=== PATIENT | female | born 1955 | race African-American/Black ===

== ENCOUNTER 2017-04-08 12:37 | Emergency (ER) | payer OTHER ==
[2017-04-08 12:43] VITALS: BP 153/70; PULSE 64; TEMP 97.6; BMI 37.5
[2017-04-08] MEDS ORDERED: KETOROLAC TROMETHAMINE 30 MG/1 ML VIAL IVPUSH ONE (13:54)
[2017-04-08] MEDS ORDERED: SODIUM CHLORIDE 1,000 ML IV STA (13:54)
--- NOTE | 2017-04-08 13:56 | PDOC ---
History of Present Illness - General History Source: Patient Exam Limitations: No Limitations - History of Present Illness Initial Comments: 04/08/17 14:07 Patient is a 61 year old female with a significant past medical history of kidney stones, hypertension and hyperlipidemia who presents to the ED with right flank pain since yesterday. Patient states that the pain initially started with diffuse back pain with sudden onset and today it is localized at the right flank and that is constant. Patient describes the pain as sharp while she is ambulating and dull while sitting down. She reports nausea. She denies any vomiting, diarrhea, constipation, hematuria, dysuria or abdominal pain. Patient denies any recent fall or trauma. <Cathleen Sorto - Last Filed: 04/08/17 14:07> - General History Source: Patient, Old Records Exam Limitations: No Limitations <Martha Tabares - Last Filed: 04/08/17 16:30> - General Chief Complaint: Pain Stated Complaint: BACK/ RT SIDE PAIN Time Seen by Provider: 04/08/17 13:36 Past History <Cathleen Sorto - Last Filed: 04/08/17 14:07> - Past Medical History Anemia: No Asthma: No Cancer: No Cardiac Disorders: No CVA: No COPD: No CHF: No Dementia: No Diabetes: No GI Disorders: No Disorders: No HTN: Yes Hypercholesterolemia: Yes Liver Disease: No Seizures: No Thyroid Disease: No - Surgical History Abdominal Surgery: No Appendectomy: No Cardiac Surgery: No Cholecystectomy: Yes Lung Surgery: No Neurologic Surgery: No Orthopedic Surgery: Yes (FX LEFT ANKLE) - Psycho/Social/Smoking Cessation Hx Anxiety: No Suicidal Ideation: No Smoking History: Never smoked Have you smoked in the past 12 months: No Information on smoking cessation initiated: No Hx Alcohol Use: No Drug/Substance Use Hx: No Substance Use Type: None Hx Substance Use Treatment: No <Martha Tabares - Last Filed: 04/08/17 16:30> - Past Medical History Allergies/Adverse Reactions: Allergies Allergy/AdvReac Type Severity Reaction Status Date / Time latex AdvReac Itching Verified 04/08/17 12:40 Home Medications: Ambulatory Orders Amlodipine Besylate [Norvasc -] 10 mg PO DAILY 07/01/14 Valsartan/Hydrochlorothiazide [Diovan Hct 160-25 mg Tablet] 1 each PO DAILY 11/02 Review of Systems - Review of Systems Able to Perform ROS?: Yes Comments:: 04/08/17 14:07 GENERAL/CONSTITUTIONAL: No fever or chills. No weakness. HEAD, EYES, EARS, NOSE AND THROAT: No change in vision. No ear pain or discharge. No sore throat. CARDIOVASCULAR: No chest pain or shortness of breath. RESPIRATORY: No cough, wheezing, or hemoptysis. GASTROINTESTINAL: No nausea, vomiting, diarrhea or constipation. GENITOURINARY: No dysuria, frequency, or change in urination. MUSCULOSKELETAL: (+)right flank pain No joint or muscle swelling or pain. No neck. SKIN: No rash NEUROLOGIC: No headache, vertigo, loss of consciousness, or change in strength/ sensation. ENDOCRINE: No increased thirst. No abnormal weight change. HEMATOLOGIC/LYMPHATIC: No anemia, easy bleeding, or history of blood clots. ALLERGIC/IMMUNOLOGIC: No hives or skin allergy. <Cathleen Sorto - Last Filed: 04/08/17 14:07> *Physical Exam - Vital Signs Last Vital Signs Temp Pulse Resp BP Pulse Ox 97.6 F 64 18 153/70 99 04/08/17 12:40 04/08/17 12:40 04/08/17 12:40 04/08/17 12:40 04/08/17 12:40 - Physical Exam Comments: 04/08/17 14:10 GENERAL: Awake, alert, and fully oriented, in no acute distress HEAD: No signs of trauma EYES: PERRLA, EOMI, sclera anicteric, conjunctiva clear ENT: Auricles normal inspection, hearing grossly normal, nares patent, oropharynx clear without exudates. Moist mucosa NECK: Normal ROM, supple, no lymphadenopathy, JVD, or masses LUNGS: Breath sounds equal, clear to auscultation bilaterally. No wheezes, and no crackles HEART: Regular rate and rhythm, normal S1 and S2, no murmurs, rubs or gallops ABDOMEN: Soft, nontender, normoactive bowel sounds. No guarding, no rebound. No masses EXTREMITIES: Normal range of motion, no edema. No clubbing or cyanosis. No cords, erythema, or tenderness NEUROLOGICAL: Cranial nerves II through XII grossly intact. Normal speech, normal gait SKIN: Warm, Dry, normal turgor, no rashes or lesions noted. <Cathleen Sorto - Last Filed: 04/08/17 14:07> - Vital Signs Last Vital Signs Temp Pulse Resp BP Pulse Ox 97.6 F 64 18 153/70 99 04/08/17 12:40 04/08/17 12:40 04/08/17 12:40 04/08/17 12:40 04/08/17 12:40 <Martha Tabares - Last Filed: 04/08/17 16:30> ED Treatment Course - LABORATORY CBC & Chemistry Diagram: 04/08/17 15:00 04/08/17 15:00 <Martha Tabares - Last Filed: 04/08/17 16:30> Medical Decision Making - Medical Decision Making 04/08/17 13:54 61-year-old female with history of hypertension and nephrolithiasis presents to the emergency Department with complaints of right flank pain since yesterday accompanied with nausea but no vomiting. Differential diagnosis includes but is not limited to: Pyelonephritis, nephrolithiasis/renal colic, musculoskeletal pain, UTI. Plan: 1. Labs and urine analysis 2. Pain management 3. IV fluids for hydration 4. CT scan of abdomen and pelvis without contrast 5. Observe and reevaluate 04/08/17 16:23 Addendum: Labs are reviewed and are noted in the EMR. The urine analysis is negative. CT scan of the abdomen and pelvis shows no acute intra-abdominal pathology or pelvic pathology as well as no stone. I reevaluated the patient at this time and she is feeling improved. We'll discharge home, follow up with primary care physician and return to the emergency department if symptoms persist, worsen, or new symptoms arise. <Martha Tabares - Last Filed: 04/08/17 16:30> *DC/Admit/Observation/Transfer - Attestations Scribe Attestion: 04/08/17 14:11 Documentation prepared by LAURENT Montoya, acting as medical lab director for Martha Tabares MD. <Cathleen Sorot - Last Filed: 04/08/17 14:07> - Discharge Dispostion Admit: No - Attestations Physician Attestion: 04/08/17 13:55 I, Dr. Martha Murano, attest that the scribes documentation that appears above has been prepared under my direction and personally reviewed by me in its entirety. I confirmed that the note above accurately reflects all work, treatment, procedures, and medical decision-making performed by me. <Martha Tabares - Last Filed: 04/08/17 16:30> Diagnosis at time of Disposition: Right flank pain - Discharge Dispostion Disposition: HOME Condition at time of disposition: Stable - Referrals Referrals: STAFF,NOT ON [Primary Care Provider] - - Patient Instructions Printed Discharge Instructions: DI for Low Back Pain Additional Instructions: You may take acetaminophen or ibuprofen for your back pain. Please follow-up with your primary care physician within the next 3-5 days and return to the emergency department if your symptoms persist, worsen, or new symptoms arise.
[2017-04-08] MEDS ORDERED: KETOROLAC TROMETHAMINE 30 MG/1 ML VIAL ONE (14:36)
[2017-04-08 15:07] LABS: URINE APPEARANCE CLEAR; URINE BILIRUBIN NEGATIVE (NEGATIVE); URINE COLOR STRAW; URINE GLUCOSE (UA) NEGATIVE (NEGATIVE); URINE KETONE TRACE (NEGATIVE); URINE LEUK ESTERASE NEGATIVE (NEGATIVE); URINE NITRITE NEGATIVE (NEGATIVE); URINE PROTEIN NEGATIVE (NEGATIVE); URINE UROBILINOGEN NEGATIVE E.U./dl (0.2-1.0)
[2017-04-08 15:11] LABS: URINE BLOOD 1+ (NEGATIVE)
[2017-04-08 15:11] LABS: BASOPHIL 0.7 % (0-2.0); EOSINOPHIL 2.3 % (0-4.5); MCH 25.2 pg (25.7-33.7); MCHC 32.3 g/dl (32.0-36.0); MEAN CELL VOLUME 78.3 fl (80-96); NEUTROPHILS 53.9 % (42.8-82.8); PLATELET COUNT 313 K/MM3 (134-434)
[2017-04-08 15:16] LABS: URINE RBC 2 /hpf (0-3); URINE WBC <1 /hpf (3-5)
[2017-04-08 15:29] LABS: CALCIUM 9.4 mg/dL (8.5-10.1); COCKROFT - GAULT 123.2075; CREATININE 0.8 mg/dL (0.55-1.02); MAGNESIUM 2.2 mg/dL (1.8-2.4); PHOSPHOROUS 2.6 mg/dL (2.5-4.9)
== END 2017-04-08 16:53 | disposition home or self-care (01) ==
LOC: JER 12:37
PROC: 3E0333Z Introduction of Anti-inflammatory into Peripheral Vein, Percutaneous Approach (ICD-10-PCS; principal; 2017-04-08)
DX: R10.31 Right lower quadrant pain (principal); I10 Essential (primary) hypertension; E78.00 Pure hypercholesterolemia, unspecified; Z87.442 Personal history of urinary calculi
CPT/HCPCS: 36415; 74176-TC; 80048; 81003; 81015; 83735; 84100; 85025; 99283-25

== ENCOUNTER 2017-04-10 10:18 | Emergency (ER) | payer OTHER ==
[2017-04-10 10:45] VITALS: TEMP 98.1; BMI 37.5
--- NOTE | 2017-04-10 12:02 | PDOC ---
History of Present Illness - General Chief Complaint: Pain Stated Complaint: RT SIDE PAIN Time Seen by Provider: 04/10/17 12:00 History Source: Patient Exam Limitations: No Limitations - History of Present Illness Initial Comments: CHIEF COMPLAINT: 61 y/o afebrile female with PMH HTN, HLD c/o right upper back pain for the past 2 days. HISTORY OF PRESENT ILLNESS: The patient was seen here 2 days ago for the same pain, had labs/UA/CT scan performed and all were normal. She was discharged home with dx of musculoskeletal pain and instructed to take tylenol at home. The patient states the pain has gotten worse and is now constant and she is also nauseous. She denies f/c, v/d, CP, SOB, abd pain, flank pain, hematuria, dysuria. Vital signs on arrival are notable for pulse of 52. REVIEW OF SYSTEMS: GENERAL/CONSTITUTIONAL: No fever/chills. No weakness. No weight change. HEAD, EYES, EARS, NOSE AND THROAT: No change in vision. No ear pain or discharge. No sore throat. CARDIOVASCULAR: No chest pain or shortness of breath. RESPIRATORY: No cough, wheezing, or hemoptysis. GASTROINTESTINAL: +nausea. No vomiting, diarrhea, abd pain. GENITOURINARY: No dysuria, frequency, or change in urination. MUSCULOSKELETAL: No joint or muscle swelling or pain. No neck or back pain. SKIN: No rash or easy bruising. NEUROLOGIC: No headache, vertigo, loss of consciousness, or loss of sensation. PHYSICAL EXAM: GENERAL: The patient is awake, alert, and fully oriented, in no acute distress. She is ambulatory with a cane. HEAD: Normal with no signs of trauma. ENT: Pupils equal, round and reactive to light, extraocular movements intact, sclera anicteric, conjunctiva clear. Neck supple. LUNGS: Clear to auscultation bilaterally. Normal excursion. No respiratory distress or use of accessory muscles. CHEST WALL: Tenderness to palpation of right floating ribs. CV: RRR, S1/S2, no MRG. Cap refill < 2 sec. ABDOMEN: Soft, non-distended, non-tender even to deep palpation, no hepatomegaly or splenomegaly, no masses. BACK: Exquisite right CVA tenderness with fist percussion. No left CVA ttp. EXTREMITIES: Normal range of motion, no edema. NEUROLOGICAL: Normal speech, normal gait. CN II-XII grossly intact. PSYCH: Normal mood, normal affect. SKIN: Warm, dry, normal turgor, no rashes or lesions noted. Past History - Past Medical History Allergies/Adverse Reactions: Allergies Allergy/AdvReac Type Severity Reaction Status Date / Time latex AdvReac Itching Verified 04/10/17 10:42 Home Medications: Ambulatory Orders Amlodipine Besylate [Norvasc -] 10 mg PO DAILY 07/01/14 Valsartan/Hydrochlorothiazide [Diovan Hct 160-25 mg Tablet] 1 each PO DAILY 11/02 Cephalexin Monohydrate [Keflex -] 500 mg PO BID #10 capsule 04/10/17 Tramadol HCl 50 mg PO Q6H #20 tablet MDD 5 04/10/17 Anemia: No Asthma: No Cancer: No Cardiac Disorders: No CVA: No COPD: No CHF: No Dementia: No Diabetes: No GI Disorders: No Disorders: No HTN: Yes Hypercholesterolemia: Yes Liver Disease: No Seizures: No Thyroid Disease: No - Surgical History Abdominal Surgery: No Appendectomy: No Cardiac Surgery: No Cholecystectomy: Yes Lung Surgery: No Neurologic Surgery: No Orthopedic Surgery: Yes (FX LEFT ANKLE) - Psycho/Social/Smoking Cessation Hx Anxiety: No Suicidal Ideation: No Smoking History: Never smoked Have you smoked in the past 12 months: No Information on smoking cessation initiated: No Hx Alcohol Use: No Drug/Substance Use Hx: No Substance Use Type: None Hx Substance Use Treatment: No *Physical Exam - Vital Signs Last Vital Signs Temp Pulse Resp BP Pulse Ox 98.1 F 52 L 18 129/76 100 04/10/17 10:42 04/10/17 10:42 04/10/17 10:42 04/10/17 10:42 04/10/17 10:42 ED Treatment Course - LABORATORY CBC & Chemistry Diagram: 04/10/17 12:10 04/10/17 12:10 Medical Decision Making - Medical Decision Making A/P: 61 y/o afebrile female with possible pyelo. Plan is as follows: 1. Labs 2. UA/culture 3. Kidney/renal ultrasound 4. IM toradol Kidney/renal ultrasound IMPRESSION: No evidence of hydronephrosis or acute kidney issue. Gave patient all of her results. At this point most likely costochondral pain and UTI. Will send home with rx for Keflex and Tramadol. INstructed the patient to take advil along with the tramadol, drink plenty of fluids and return to the ER in 48-72 hours if no improvement in symptoms. The patient verbalizes understanding of all instructions, has no further questions and is awaiting discharge. *DC/Admit/Observation/Transfer Diagnosis at time of Disposition: Costochondral pain UTI (urinary tract infection) Qualifiers: Urinary tract infection type: acute cystitis Hematuria presence: without hematuria Qualified Code(s): N30.00 - Acute cystitis without hematuria - Discharge Dispostion Disposition: HOME Condition at time of disposition: Stable - Prescriptions Prescriptions: Cephalexin Monohydrate [Keflex -] 500 mg PO BID #10 capsule Tramadol HCl 50 mg PO Q6H #20 tablet MDD 5 - Referrals Referrals: STAFF,NOT ON [Primary Care Provider] - Clement Reynolds MD [Staff Physician] - - Patient Instructions Printed Discharge Instructions: DI for Costochondritis, DI for Urinary Tract Infection (UTI) Additional Instructions: Discharge Instructions: -Please take 2 prescriptions as prescribed; Tramadol may cause drowsiness -Take Tramadol along with Motrin every 6 hours for pain -Drink plenty of fluids -Follow up with your doctor or Dr. Reynolds within 2 weeks -Return to the ER with any worsening or concerning symptom - Post Discharge Activity Work/School Note: Back to Work
[2017-04-10] MEDS ORDERED: KETOROLAC TROMETHAMINE 60 MG/2 ML VIAL IVPUSH ONE (12:08)
[2017-04-10] MEDS ORDERED: KETOROLAC TROMETHAMINE 60 MG/2 ML VIAL ONE (12:26)
[2017-04-10 12:50] LABS: BASOPHIL 0.3 % (0-2.0); EOSINOPHIL 2.5 % (0-4.5); MCH 25.1 pg (25.7-33.7); MCHC 31.9 g/dl (32.0-36.0); MEAN CELL VOLUME 78.7 fl (80-96); MEAN PLT VOLUME 6.8 fl (7.5-11.1); NEUTROPHILS 56.9 % (42.8-82.8); PLATELET COUNT 322 K/MM3 (134-434); RDW 16.5 % (11.6-15.6); WHITE BLOOD COUNT 6.3 K/mm3 (4.0-10.0)
[2017-04-10 12:52] LABS: URINE APPEARANCE CLEAR; URINE BILIRUBIN NEGATIVE (NEGATIVE); URINE COLOR YELLOW; URINE GLUCOSE (UA) NEGATIVE (NEGATIVE); URINE KETONE NEGATIVE (NEGATIVE); URINE NITRITE NEGATIVE (NEGATIVE); URINE PROTEIN NEGATIVE (NEGATIVE); URINE UROBILINOGEN NEGATIVE E.U./dl (0.2-1.0)
[2017-04-10 13:00] LABS: URINE BLOOD 1+ (NEGATIVE); URINE LEUK ESTERASE 1+ (NEGATIVE)
[2017-04-10 13:03] LABS: URINE BACTERIA MODERATE /hpf (NONE SEEN); URINE MUCUS FEW; URINE RBC 3 /hpf (0-3); URINE WBC 13 /hpf (3-5)
[2017-04-10 13:16] LABS: ALBUMIN 4.1 g/dl (3.4-5.0); BILIRUBIN,TOTAL 0.4 mg/dL (0.2-1.0); CALCIUM 9.8 mg/dL (8.5-10.1); COCKROFT - GAULT 98.566; TOT PROT 8.2 g/dl (6.4-8.2)
--- NOTE | 2017-04-10 14:21 | PDOC ---
*Physical Exam - Vital Signs Last Vital Signs Temp Pulse Resp BP Pulse Ox 98.1 F 52 L 18 129/76 100 04/10/17 10:42 04/10/17 10:42 04/10/17 10:42 04/10/17 10:42 04/10/17 10:42 - Physical Exam Comments: 04/10/17 14:19 Vital signs normal. Overall well-appearing, speaking full sentences Exam is normal except for isolated and reproducible tenderness along the right lower floating ribs, most prominent near the cartilage, no overlying rash or bruising or swelling Lungs are clear, no CVA tenderness, abdomen is benign ED Treatment Course - LABORATORY CBC & Chemistry Diagram: 04/10/17 12:10 04/10/17 12:10 - ADDITIONAL ORDERS Additional order review: Laboratory Results 04/10/17 04/10/17 12:10 12:10 Sodium 141 Potassium 3.5 Chloride 102 Carbon Dioxide 32 Anion Gap 7 L BUN 18 D Creatinine 1.0 D Creat Clearance w eGFR 56.37 Random Glucose 95 Calcium 9.8 Total Bilirubin 0.4 D AST 17 ALT 18 Alkaline Phosphatase 94 Total Protein 8.2 D Albumin 4.1 D Urine Color Yellow Urine Appearance Clear Urine pH 5.0 D Urine Protein Negative Urine Glucose (UA) Negative Urine Ketones Negative Urine Blood 1+ H Urine Nitrite Negative Urine Bilirubin Negative Urine Urobilinogen Negative Ur Leukocyte Esterase 1+ H Urine RBC 3 Urine WBC 13 Ur Epithelial Cells Rare Urine Bacteria Moderate Urine Mucus Few 04/10/17 12:10 RBC 4.81 MCV 78.7 L MCHC 31.9 L RDW 16.5 H MPV 6.8 L Neutrophils % 56.9 Lymphocytes % 34.5 Monocytes % 5.8 Eosinophils % 2.5 Basophils % 0.3 - Medications Given in the ED: ED Medications Discontinued Medications Generic Name Dose Route Start Last Admin Trade Name Freq PRN Reason Stop Dose Admin Ketorolac Tromethamine 60 mg 04/10/17 12:08 04/10/17 12:31 Toradol Injection - IVPUSH 04/10/17 12:09 60 mg ONCE ONE Administration Medical Decision Making - Medical Decision Making 04/10/17 14:19 Patient seen and evaluated with the nurse practitioner. I agree with the overall evaluation, assessment, and management with the following summary of visit: 61-year-old female with no severe past medical history presents for second visit in 3 days for persistent right sided pain. Prior workup with labs and urinalysis and CAT scan showed no acute pathology, workup today showed normal labs, normal renal ultrasound, but elevated white blood cells on the urinalysis. Overall her presentation is not consistent with UTI or pyelonephritis, but given the elevated white count on the urinalysis will treat empirically as it pyelonephritis. In the absence of fever and leukocytosis, chemistries treated with outpatient trial. Clinically, the patient has costochondral pain that seems more musculoskeletal, Will trial course of tramadol with strict return precautions. She has no risk factors for PE, no signs or symptoms of PE, clinically rules out. *DC/Admit/Observation/Transfer Diagnosis at time of Disposition: Costochondral pain UTI (urinary tract infection) Qualifiers: Urinary tract infection type: acute cystitis Hematuria presence: without hematuria Qualified Code(s): N30.00 - Acute cystitis without hematuria - Discharge Dispostion Disposition: HOME Condition at time of disposition: Stable - Prescriptions Prescriptions: Cephalexin Monohydrate [Keflex -] 500 mg PO BID #10 capsule Tramadol HCl 50 mg PO Q6H PRN #20 tablet MDD 4 PRN Reason: Pain - Referrals Referrals: STAFF,NOT ON [Primary Care Provider] - Clement Reynolds MD [Staff Physician] - - Patient Instructions Printed Discharge Instructions: DI for Urinary Tract Infection (UTI), DI for Costochondritis Additional Instructions: Discharge Instructions: -Please take 2 prescriptions as prescribed; Tramadol may cause drowsiness -Take Tramadol along with Motrin every 6 hours for pain -Drink plenty of fluids -Follow up with your doctor or Dr. Reynolds within 2 weeks -Return to the ER with any worsening or concerning symptom - Post Discharge Activity Work/School Note: Back to Work
[2017-04-10 15:20] VITALS: BP 126/72; PULSE 58
== END 2017-04-10 15:05 | disposition home or self-care (01) ==
LOC: JER 10:18
DX: M94.0 Chondrocostal junction syndrome [Tietze] (principal); N30.00 Acute cystitis without hematuria; I10 Essential (primary) hypertension; E78.00 Pure hypercholesterolemia, unspecified
CPT/HCPCS: 36415; 76775-TC; 80053; 81003; 81015; 85025; 87086; 99283-25

== ENCOUNTER 2017-12-06 06:44 | Day surgery (SDC) | payer OTHER ==
[2017-12-05 08:40] VITALS: BMI 37.0
--- NOTE | 2017-12-06 07:58 | HP ---
Satellite [facility] - Chief Complaint Chief Complaint: left thumb pain History of Present Illness: left trigger thumb History Source: Patient Limitations to Obtaining History: No Limitations - Past Medical History Allergies/Adverse Reactions: Allergies Allergy/AdvReac Type Severity Reaction Status Date / Time latex AdvReac Itching Verified 04/10/17 10:42 Cardiovascular: Yes: HTN - Current Medications Current Medications: Home Medications Medication Instructions Recorded Amlodipine Besylate [Norvasc -] 10 mg PO DAILY 07/01/14 Valsartan/Hydrochlorothiazide 1 each PO DAILY 07/01/14 [Diovan Hct 160-25 mg Tablet] Satellite Physical Exam - Physical Examination General Appearance: Well Nourished ENT: Clear Lung: Clear to auscultation Heart: Regular rate & rhythm Breasts: Soft Abdomen: Soft Extremities: No edema Satellite Impression/Plan - Impression/Plan Impression: left trigger thumb Operative Procedure: left trigger thumb release Date to be Performed: 12/06/17
[2017-12-06] MEDS ORDERED: PROPOFOL 20 ML ONE (08:33)
[2017-12-06] MEDS ORDERED: MIDAZOLAM HCL 2 MG/2 ML SINGLE DOSE VIAL ONE (08:33)
[2017-12-06 08:49] LABS: PROTHROMBIN TIME (PATIENT) 11.3 SEC (9.98-11.88)
[2017-12-06 08:52] LABS: ACTIVATED PTT 28.3 SECONDS (26.9-34.4)
[2017-12-06] MEDS ORDERED: BUPIVACAINE HCL/PF 0.5% (5MG/ML) 10 ML VIAL ONE (09:09)
[2017-12-06] MEDS ORDERED: LIDOCAINE HCL 1%, 10 MG/ML (20ML VIAL) ONE (09:09)
[2017-12-06] MEDS ORDERED: ONDANSETRON 4 MG/2 ML VIAL IVPUSH PRN (09:31)
[2017-12-06] MEDS ORDERED: oxyCODONE HCL 5 MG TABLET PO PRN (09:31)
[2017-12-06] MEDS ORDERED: LACTATED RINGERS SOLUTION 1,000 ML IV SCH (09:45)
[2017-12-06] MEDS ORDERED: LIDOCAINE HCL 1%, 10 MG/ML (20ML VIAL) INF ONE (09:50)
[2017-12-06] MEDS ORDERED: BUPIVACAINE HCL/PF 0.5% (5MG/ML) 10 ML VIAL IJ ONE (09:50)
--- NOTE | 2017-12-06 10:06 | OP ---
Operative Note - Note: Operative Date: 12/06/17 Pre-Operative Diagnosis: left hand mass, trigger thumb Operation: left hand mass excision, left trigger thumb release, tendon sheath excision Post-Operative Diagnosis: Same as Pre-op Surgeon: Clement Pagan Chief Wharfinger: Jesus Amador Anesthesiologist/BOX STORAGE WORKER: Carisa Santiago Anesthesia: Local, MAC Specimens Removed: 1. tendon sheath 2. hand mass Estimated Blood Loss (mls): 0 Drains, Volume Out (mls): 0 Blood Volume Replaced (mls): 0 Fluid Volume Replaced (mls): 500 Operative Report Dictated: Yes
[2017-12-06 10:52] VITALS: TEMP 97.5
--- NOTE | 2017-12-06 11:04 | OP ---
DATE OF OPERATION: 12/06/2017 PREOPERATIVE DIAGNOSIS: Left trigger thumb and hand mass (different location). POSTOPERATIVE DIAGNOSIS: Left trigger thumb and hand mass (different location). PROCEDURE: 1. Left hand mass excision. 2. Left trigger thumb release. 3. Tendon sheath excision. SURGEON: Clement Pagan MD SEMIAUTOMATIC STITCHER OPERATOR: Humza Soria MD ELECTROTHERAPIST: MANAGER CUSTOMS ANESTHESIA: MAC anesthesia, local injection of 12 mL 0.5% Marcaine, 1% lidocaine mix. DRAINS: None. COMPLICATIONS: None. SPECIMENS: 1. Left hand mass, palm. 2. Left thumb tendon sheath. BLOOD LOSS: None. BLOOD GIVEN: None. FLUID REPLACEMENT: 500 mL INDICATION FOR SURGERY: This patient is a 62-year-old female with a preoperative diagnosis of a left trigger thumb and recurrently painful hand mass in the palm. After understanding the potential, risks, complications, alternatives, benefits of surgery versus nonsurgical treatment, the patient elected to undergo this procedure. DESCRIPTION OF PROCEDURE: Patient was brought to the operating room, peripheral IV placed, IV sedation given. Ancef 1 g IV was given. MAC anesthesia was induced. Left upper extremity was prepped and draped in sterile fashion. Two incisions were marked out with a marking pen, one transversely within an already existing skin crease at the base of the left thumb for the trigger thumb release, a separate incision longitudinally in the palm near the base of the thenar eminence over a painful mass. The arm was then elevated, exsanguinated with an Esmarch bandage, the tourniquet infiltrated to 250 mmHg. The left trigger thumb release was done in the standard fashion. A transverse incision was made with a No. 15 scalpel blade. Subcutaneous hemostasis was achieved with a bipolar cautery. Great care was taken to identify and protect the neurovascular bundles. The patient had a lot of excessive fat and what looked like a small multiloculated ganglion cyst on the volar aspect of the left A1 abdelrahman sheath area, therefore this was excised. The No. 15 scalpel blade was utilized to cut down through the tendon sheath. This opened up the A1 abdelrahman sheath. The central 1 mm was excised and passed off the field as part of the same specimen. The distal and the proximal were checked, the Ragnell retractor used to bring the SPL tendon up through the wound. It looked good. The area was copiously irrigated and washed out. The skin was closed with a 4-0 undyed Vicryl in the deep dermal layer, and final skin reapproximation was done with horizontal mattress 4-0 nylon sutures. Next our attention turned to the palm. A longitudinal incision was made with a No. 15 scalpel blade. Subcutaneous hemostasis was achieved with a bipolar cautery. Subcutaneously there was an obvious mass. It was purple, blood filled, and looked to be either a blood-filled cyst/retinacular cyst, a thrombosed vein, or perhaps a glomus tumor. Either way, it was excised. It was well circumscribed. It was quite small, perhaps 1.5 mm in diameter. It was self-contained. There was no stalk. The area was cauterized, irrigated, washed out, skin closed with 4-0 undyed Vicryl. Final skin reapproximation done with horizontal mattress 4-0 nylon sutures. The area was then washed and dried, covered with Xeroform, 4 x 4 gauze, fluffs between the fingers, Webril, and latex-free Vamshi bandage. The tourniquet was taken down after total tourniquet time of 18 minutes. There were no complications during the case. Patient tolerated the procedure quite well and was brought to ambulatory recovery in stable condition. HUMZA SORIA M.D. [id number]
[2017-12-06 11:51] VITALS: BP 139/88; PULSE 59
--- NOTE | 2017-12-08 14:07 | PATH ---
Surgical Pathology Report Patient Name: MUKUL DIANA [facility]. Rec. #: [id number] /Age/Gender: 1955 (Age: 62) / F Account: [id number] [place] [facility] Taken: 12/06/2017 Received: 12/06/2017 Reported: 12/08/2017 Physicians: Lanette Arias M.D. Specimen(s) Received A: LEFT THUMB TENDON SHEATH B: MASS OF LEFT HAND Clinical History Left hand mass, left trigger finger Final Diagnosis A. THUMB, LEFT, TENDON SHEATH, EXCISION: BENIGN DENSE FIBROCONNECTIVE TISSUE, FIBROADIPOSE TISSUE, AND PROMINENT NERVE BUNDLES. B. HAND, LEFT, MASS, EXCISION: HEMANGIOMA. Electronically Signed Lindy Rollins M.D. Gross Description A. Received in formalin labeled "left thumb tendon sheath," is a 1.2 x 0.5 x 0.2 cm aggregate of patel-yellow soft tissue fragments. The formalin is filtered and the specimen is entirely submitted in one cassette. B. Received in formalin labeled "mass left hand," is a 0.5 x 0.3 x 0.2 cm patel brown, irregular portion of soft tissue. The specimen is submitted in toto in one cassette. /12/06/201712/06/2017
== END 2017-12-06 12:30 | disposition home or self-care (01) ==
LOC: JASU-SURG 06:44
PROVIDERS: ATTEND Orthopaedic Surgery
PROC: 0JBK0ZZ Excision of Left Hand Subcutaneous Tissue and Fascia, Open Approach (ICD-10-PCS; 2017-12-06)
PROC: 0XBK0ZZ Excision of Left Hand, Open Approach (ICD-10-PCS; 2017-12-06)
PROC: 0LN80ZZ Release Left Hand Tendon, Open Approach (ICD-10-PCS; principal; 2017-12-06 09:00)
DX: M65.312 Trigger thumb, left thumb (principal); D18.09 Hemangioma of other sites
CPT/HCPCS: 36415; 85610; 85730; 88304-TC; 88305-TC; 94760

== ENCOUNTER 2020-02-01 14:32 | Emergency (ER) | payer OTHER ==
[2020-02-01 14:49] VITALS: BMI 37.1
--- NOTE | 2020-02-01 15:29 | PDOC ---
History of Present Illness - General Chief Complaint: Chest Pain Stated Complaint: CHEST PAIN Time Seen by Provider: 02/01/20 15:28 History Source: Patient Exam Limitations: No Limitations - History of Present Illness Initial Comments: 02/01/20 15:28 Angelic Tate is a 64F presenting with chest pain. Past History - Past Medical History Allergies/Adverse Reactions: Allergies Allergy/AdvReac Type Severity Reaction Status Date / Time latex AdvReac Itching Verified 02/01/20 14:49 Home Medications: Ambulatory Orders Amlodipine Besylate [Norvasc -] 10 mg PO DAILY 07/01/14 Valsartan/Hydrochlorothiazide [Diovan Hct 160-25 mg Tablet] 1 each PO DAILY 07/01/14 Hydrocodone/Acetaminophen [Vicodin 5-300 mg Tablet] 1 - 2 tab PO TID PRN #20 tablet MDD 6 12/06/17 Anemia: No Asthma: No Cancer: No Cardiac Disorders: No CVA: No COPD: No CHF: No Dementia: No Diabetes: No GI Disorders: No Disorders: No HTN: Yes Hypercholesterolemia: Yes Liver Disease: No Seizures: No Thyroid Disease: No - Surgical History Abdominal Surgery: No Appendectomy: No Cardiac Surgery: No Cholecystectomy: Yes Lung Surgery: No Neurologic Surgery: No Orthopedic Surgery: Yes (FX LEFT ANKLE; KNEE REPLACEMENT) - Immunization History Immunization Up to Date: Yes - Psycho Social/Smoking Cessation Hx Smoking History: Never smoked Have you smoked in the past 12 months: No Information on smoking cessation initiated: No Hx Alcohol Use: No Drug/Substance Use Hx: No Substance Use Type: None Hx Substance Use Treatment: No *Physical Exam - Vital Signs Last Vital Signs Temp Pulse Resp BP Pulse Ox 97.9 F 61 18 138/69 98 02/01/20 14:43 02/01/20 14:43 02/01/20 14:43 02/01/20 14:43 02/01/20 14:43 Discharge - Follow up/Referral Referrals: Judy Martin MD [Primary Care Provider] - - Patient Discharge Instructions - Post Discharge Activity
--- NOTE | 2020-02-01 15:48 | EKG ---
Test Reason : Blood Pressure : / mmHG Vent. Rate : 057 BPM Atrial Rate : 057 BPM P-R Int : 170 ms QRS Dur : 088 ms QT Int : 400 ms P-R-T Axes : 036 -15 012 degrees QTc Int : 389 ms SINUS BRADYCARDIA POSSIBLE LEFT ATRIAL ENLARGEMENT NONSPECIFIC ST AND T WAVE ABNORMALITY ABNORMAL ECG WHEN COMPARED WITH ECG OF 18-FEB-2014 13:39, NO SIGNIFICANT CHANGE WAS FOUND Confirmed by MD Royer, Juan ([id number]) on 02/01/2020 3:48:14 PM Referred By: Confirmed By:Juan Linton MD
--- NOTE | 2020-02-01 15:52 | PDOC ---
History of Present Illness - General Chief Complaint: Chest Pain Stated Complaint: CHEST PAIN Time Seen by Provider: 02/01/20 15:28 - History of Present Illness Initial Comments: Patient's Cell Angelic Tate is a 64 y/o female with reported PMH significant HTN, DM, presenting with chest pain. Reports that the chest pain started a week ago. Reports that pain is worse in the morning and improves as the day continues. Describes the pain as squeezing like in sensation. Denies pain radiation. Denies numbness/tingling. Pt reports having similar pain a couple of years ago and was placed on a Hal[employer] monitor. Does not think she had any abnormalities noted. Denies fever/chills. Denies cough. Denies SOB at rest. Denies abdominal pain/diarrhea/dysuria/LE swelling. Of note, patient had contact on January 22 (conversation at approx. 3 feet away) with a friend who later tested positive for COVID-19. Denies fever/cough. Positive shortness of breath on exertion. Past History - Past Medical History Allergies/Adverse Reactions: Allergies Allergy/AdvReac Type Severity Reaction Status Date / Time latex AdvReac Itching Verified 02/01/20 14:49 Home Medications: Ambulatory Orders Amlodipine Besylate [Norvasc -] 10 mg PO DAILY 07/01/14 Valsartan/Hydrochlorothiazide [Diovan Hct 160-25 mg Tablet] 1 each PO DAILY 07/01/14 Anemia: No Asthma: No Cancer: No Cardiac Disorders: No CVA: No COPD: No CHF: No Dementia: No Diabetes: No GI Disorders: No Disorders: No HTN: Yes Hypercholesterolemia: Yes Liver Disease: No Seizures: No Thyroid Disease: No - Surgical History Abdominal Surgery: No Appendectomy: No Cardiac Surgery: No Cholecystectomy: Yes Lung Surgery: No Neurologic Surgery: No Orthopedic Surgery: Yes (FX LEFT ANKLE; KNEE REPLACEMENT) - Immunization History Immunization Up to Date: Yes - Psycho Social/Smoking Cessation Hx Smoking History: Never smoked Have you smoked in the past 12 months: No Information on smoking cessation initiated: No Hx Alcohol Use: No Drug/Substance Use Hx: No Substance Use Type: None Hx Substance Use Treatment: No Cardiac Specific PMH - Complaint Specific PMHX Pacemaker: No Review of Systems - Review of Systems Comments:: GENERAL/CONSTITUTIONAL: No fever or chills. No weakness._ HEAD, EYES, EARS, NOSE AND THROAT: No change in vision. No change in hearing. No sore throat._ CARDIOVASCULAR: Reports mild chest pain and shortness of breath on exertion. RESPIRATORY: Denies cough, hemoptysis_ GASTROINTESTINAL: No nausea, vomiting, diarrhea or constipation._ GENITOURINARY: No dysuria, frequency, or change in urination._ MUSCULOSKELETAL: No joint or muscle swelling or pain. No neck or back pain._ SKIN: No rash_ NEUROLOGIC: No headache, vertigo, loss of consciousness, or change in strength/sensation._ ENDOCRINE: No increased thirst. No abnormal weight change_ HEMATOLOGIC/LYMPHATIC: No anemia, easy bleeding, or history of blood clots._ ALLERGIC/IMMUNOLOGIC: No hives or skin allergy._ *Physical Exam - Vital Signs Last Vital Signs Temp Pulse Resp BP Pulse Ox 98.3 F 68 18 122/78 100 02/01/20 19:17 02/01/20 19:17 02/01/20 19:17 02/01/20 19:17 02/01/20 19:17 - Physical Exam GENERAL: Awake, alert, and oriented to person/place/time, in no acute distress_ HEAD: No signs of trauma, normocephalic, atraumatic _ EYES: PERRLA, EOMI, sclera anicteric, conjunctiva clear_ ENT: Hearing grossly normal, nares patent, oropharynx clear without exudates. No uvular deviation. Moist mucosa_ NECK: Normal ROM, supple, no lymphadenopathy, JVD, or masses_ LUNGS: No distress, speaks in full sentences, clear to auscultation bilaterally _ HEART: Regular rate and rhythm, normal S1 and S2, no murmurs appreciated, peripheral pulses normal and equal bilaterally._ ABDOMEN: Soft, nontender, normoactive bowel sounds. No guarding, no rebound. No masses_ EXTREMITIES: Normal inspection, Normal range of motion, no edema. No clubbing or cyanosis_ NEUROLOGICAL: Cranial nerves II through XII grossly intact. Normal speech, normal gait, no focal sensorimotor deficits _ SKIN: Warm, Dry, normal turgor, no rashes or lesions noted_ ED Treatment Course - LABORATORY CBC & Chemistry Diagram: 02/01/20 16:00 02/01/20 16:00 - ADDITIONAL ORDERS Additional order review: Laboratory Results 02/01/20 02/01/20 02/01/20 19:08 16:00 16:00 D-Dimer 666 H Sodium 139 Potassium 4.0 Chloride 103 Carbon Dioxide 28 Anion Gap 8 BUN 11.4 Creatinine 0.7 Est GFR (CKD-EPI)AfAm 106.12 Est GFR (CKD-EPI)NonAf 91.56 Random Glucose 87 Calcium 9.4 Total Bilirubin 0.4 AST 18 ALT 19 Alkaline Phosphatase 101 Creatine Kinase 114 Troponin I < 0.02 < 0.02 Total Protein 8.0 Albumin 3.7 02/01/20 16:00 RBC 4.86 MCV 79.5 L MCHC 32.0 RDW 16.6 H MPV 6.8 L Neutrophils % 49.5 Lymphocytes % 38.3 Monocytes % 5.8 Eosinophils % 5.4 H D Basophils % 1.0 D Medical Decision Making - Medical Decision Making 64F presenting mid sternal chest pain for the past 5 days. Dyspnea on exertion at the hospital today. -cbc, cmp -ekg, trop, cxr -d dimer -flu swab -RSV swab -COVID-19 02/01/20 16:34 Call placed to [facility] ([phone]). Will call back only if patient is admitted. 02/01/20 16:35 EKG shows sinus bradycardia, 57 bpm, no ST elevation/depression, QTc 389, no axis deviation. 02/01/20 17:51 Labs reviewed. Laboratory Last Values WBC 7.4 K/mm3 (4.0-10.0) 02/01/20 16:00 RBC 4.86 M/mm3 (3.60-5.2) 02/01/20 16:00 Hgb 12.4 GM/dL (10.7-15.3) 02/01/20 16:00 Hct 38.7 % (32.4-45.2) 02/01/20 16:00 MCV 79.5 fl (80-96) L 02/01/20 16:00 MCH 25.5 pg (25.7-33.7) L 02/01/20 16:00 MCHC 32.0 g/dl (32.0-36.0) 02/01/20 16:00 RDW 16.6 % (11.6-15.6) H 02/01/20 16:00 Plt Count 358 K/MM3 (134-434) 02/01/20 16:00 MPV 6.8 fl (7.5-11.1) L 02/01/20 16:00 Absolute Neuts (auto) 3.7 K/mm3 (1.5-8.0) 02/01/20 16:00 Neutrophils % 49.5 % (42.8-82.8) 02/01/20 16:00 Lymphocytes % 38.3 % (8-40) 02/01/20 16:00 Monocytes % 5.8 % (3.8-10.2) 02/01/20 16:00 Eosinophils % 5.4 % (0-4.5) H D 02/01/20 16:00 Basophils % 1.0 % (0-2.0) D 02/01/20 16:00 Nucleated RBC % 0 % (0-0) 02/01/20 16:00 D-Dimer 666 ng/ml (0-500) H 02/01/20 16:00 Sodium 139 mmol/L (136-145) 02/01/20 16:00 Potassium 4.0 mmol/L (3.5-5.1) 02/01/20 16:00 Chloride 103 mmol/L (98-107) 02/01/20 16:00 Carbon Dioxide 28 mmol/L (21-32) 02/01/20 16:00 Anion Gap 8 MMOL/L (8-16) 02/01/20 16:00 BUN 11.4 mg/dL (7-18) 02/01/20 16:00 Creatinine 0.7 mg/dL (0.55-1.3) 02/01/20 16:00 Est GFR (CKD-EPI)AfAm 106.12 02/01/20 16:00 Est GFR (CKD-EPI)NonAf 91.56 02/01/20 16:00 Random Glucose 87 mg/dL (74-106) 02/01/20 16:00 Calcium 9.4 mg/dL (8.5-10.1) 02/01/20 16:00 Total Bilirubin 0.4 mg/dL (0.2-1) 02/01/20 16:00 AST 18 U/L (15-37) 02/01/20 16:00 ALT 19 U/L (13-61) 02/01/20 16:00 Alkaline Phosphatase 101 U/L (45-117) 02/01/20 16:00 Creatine Kinase 114 U/L (26-192) 02/01/20 16:00 Troponin I < 0.02 ng/ml (0.00-0.05) 02/01/20 16:00 Total Protein 8.0 g/dl (6.4-8.2) 02/01/20 16:00 Albumin 3.7 g/dl (3.4-5.0) 02/01/20 16:00 Influenza A (Rapid) Negative (Negative) 02/01/20 16:00 Influenza B (Rapid) Negative (Negative) 02/01/20 16:00 RSV Rapid Negative (Negative) 02/01/20 16:00 D-Dimer is mildly elevated, as this is an acute phase reactant elevated in viral infections. Pt is resting comfortably and breathing with ease at rest. No shortness of breath at rest. Saturating well on room air. Very low suspicion for PE. Wells Score 0. 02/01/20 19:00 CXR negative for acute chest pathology. Pt signed out to Dr. Hendrix pending . Discharge - Discharge Information Problems reviewed: Yes Clinical Impression/Diagnosis: Chest pain Qualifiers: Chest pain type: unspecified Qualified Code(s): R07.9 - Chest pain, unspecified Condition: Good Disposition: HOME - Admission No - Follow up/Referral Referrals: Judy Martin MD [Primary Care Provider] - Anderson Skinner MD [Staff Physician] - - Patient Discharge Instructions Patient Printed Discharge Instructions: DI for Atypical Chest Pain, DI for Ch est Pain Additional Instructions: Your EKG, labs, chest x-ray were within normal limits. Because you have been in contact with someone with known COVID-19, we encourage you to self quarantine for 14 days since the contact for the safety of yourself and those around you. Please make a follow up appointment with a health outcomes liaison (referral provided here). If you experience any new, worsening, or concerning symptoms, including severe chest pain, nausea, vomiting, shortness of breath, cough, fever, or any other concerns, please return to the emergency room. - Post Discharge Activity
--- NOTE | 2020-02-01 16:23 | PDOC ---
Documentation entered by Elyse Boo SCRIBE, acting as scribe for Isa Melendez MD. Isa Melendez MD: This documentation has been prepared by the scribe, Elyse Boo SCRIBE, under my direction and personally reviewed by me in its entirety. I confirm that the documentation accurately reflects all work, treatment, procedures, and medical decision making performed by me. Attending Attestation - Resident Resident Name: Dawit Pierre - ED Attending Attestation I have performed the following: I have examined & evaluated the patient, The case was reviewed & discussed with the resident, I agree w/resident's findings & plan - HPI HPI: 02/01/20 16:04 Ms. Tate is a 64 year old female with past medical history significant for HTN and DM who presents to the emergency department with chest pain that's been ongoing for the past week, that's worse in the morning, with improvement noted throughout the day. +mild nonproductive cough. SOB today with walking, but otherwise no distress as pt was anxious walking in. not short of breath at rest. Denies fever or chills. The patient reports sick contact with a friend who tested positive for COVID-19. 02/01/20 16:43 - Physicial Exam PE: 02/01/20 16:04 Agree with the resident's HPI and PE as documented in the electronic medical record. GENERAL: Well developed, well nourished. Awake and alert. No acute distress. HEENT: Normocephalic, atraumatic. PERRLA, EOMI. No conjunctival pallor. Sclera are non- icteric. Moist mucous membranes. Oropharynx is clear. NECK: Supple. Full ROM. CARDIOVASCULAR: Regular rate and rhythm. Distal pulses are 2+ and symmetric. PULMONARY: No evidence of respiratory distress. Lungs clear to auscultation bilaterally. No wheezing, rales or rhonchi. ABDOMINAL: Soft. Non-tender. Non-distended. No rebound or guarding. MUSCULOSKELETAL Normal range of motion at all joints. EXTREMITIES: No edema. No calf tenderness. SKIN: Warm and dry. Normal capillary refill. NEUROLOGICAL: Alert, awake, appropriate. Normal speech. PSYCHIATRIC: Cooperative. Good eye contact. Appropriate mood and affect. 02/01/20 16:42 02/02/20 07:23 - Medical Decision Making 03/14/20 16:26 Vital Signs Temp Pulse Resp BP Pulse Ox 97.9 F 61 18 138/69 98 02/01/20 14:43 02/01/20 14:43 02/01/20 14:43 02/01/20 14:43 02/01/20 14:43 DDx chest pain: ACS, coronary vasospasm, NSTEMI, arrhythmia, unstable angina, PE, dissection, PUD, esophageal spasm, GERD, gastritis, costochondritis, pneumonia, pleurisy, pericarditis/myocarditis. dehydration, electrolyte/metabolic derangements. Considered but clinically doubt based on HPI and PE: Low suspicion for ao dissection. EKG normal sinus rhythm, no interval abnormalities, narrow QRS, ST and T wave segments and morphology normal. Nonspecific T wave abnormalities, unchanged from prior Chest pain HEART score 3 which denotes Low risk and probability for ACS, less than 1.7% risk for MACE at 4-6 wks 2 trops, dimer to eval for pe, low risk for PE but with dyspnea and pleuritic cp, can d dimer to eval for PE viral panel sent, pending coronavirus given exposure with close contact <14 days wth mild sx. s/o to dr Power pending workup, cxr 02/02/20 07:26 Heart Score/ECG Review - History History: Slightly suspicious - Electrocardiogram EKG: Non specific repolarization disturbance - Age Age: 45-65 - Risk Factors Risk Factors Heart Score: Yes Hx Hypertension, Yes Hx Diabetes Based on the list above the patient has:: 1-2 risk factors - Troponin Troponin: </= normal limit - Score Heart Score - Total: 3 #1 ECG reviewed & interpreted by me at: 14:40 General ECG Interpretation: Sinus Rhythm, Normal Intervals 02/01/20 16:22 EKG sinus rhythm at 57 bpm, no interval abnormalities, narrow QRS, ST and T wave segments and morphology normal. Nonspecific T wave abnormalities Discharge - Discharge Information Problems reviewed: Yes Clinical Impression/Diagnosis: Chest pain Condition: Good Disposition: HOME - Follow up/Referral Referrals: Judy Martin MD [Primary Care Provider] - Anderson Skinner MD [Staff Physician] - - Patient Discharge Instructions Patient Printed Discharge Instructions: DI for Atypical Chest Pain, DI for Chest Pain Additional Instructions: Your EKG, labs, chest x-ray were within normal limits. Because you have been in contact with someone with known COVID-19, we encourage you to self quarantine for 14 days since the contact for the safety of yourself and those around you. Please make a follow up appointment with a commercial representative (referral provided here). If you experience any new, worsening, or concerning symptoms, including severe chest pain, nausea, vomiting, shortness of breath, cough, fever, or any other concerns, please return to the emergency room. - Post Discharge Activity
[2020-02-01 16:36] LABS: EOS % 5.4 % (0-4.5); HEMATOCRIT 38.7 % (32.4-45.2); HEMOGLOBIN 12.4 GM/dL (10.7-15.3); LYMPH % 38.3 % (8-40); MCH 25.5 pg (25.7-33.7); MEAN CELL VOLUME 79.5 fl (80-96); MEAN PLT VOLUME 6.8 fl (7.5-11.1); MONO % 5.8 % (3.8-10.2); NEUT % 49.5 % (42.8-82.8); PLATELET COUNT 358 K/MM3 (134-434); RBC 4.86 M/mm3 (3.60-5.2); RDW 16.6 % (11.6-15.6); WHITE BLOOD COUNT 7.4 K/mm3 (4.0-10.0)
[2020-02-01 17:05] LABS: ALBUMIN 3.7 g/dl (3.4-5.0); ALK PHOS 101 U/L (45-117); ANION GAP 8 MMOL/L (8-16); BILIRUBIN,TOTAL 0.4 mg/dL (0.2-1); BLOOD UREA NITROGEN 11.4 mg/dL (7-18); CALCIUM 9.4 mg/dL (8.5-10.1); CHLORIDE 103 mmol/L (98-107); CO2 28 mmol/L (21-32); CREATININE 0.7 mg/dL (0.55-1.3); GLUCOSE,RANDOM 87 mg/dL (74-106); SGOT/AST 18 U/L (15-37); SGPT/ALT 19 U/L (13-61); SODIUM 139 mmol/L (136-145)
--- NOTE | 2020-02-01 19:16 | PDOC ---
*Physical Exam - Vital Signs Last Vital Signs Temp Pulse Resp BP Pulse Ox 97.9 F 61 18 138/69 98 02/01/20 14:43 02/01/20 14:43 02/01/20 14:43 02/01/20 14:43 02/01/20 14:43 ED Treatment Course - LABORATORY CBC & Chemistry Diagram: 02/01/20 16:00 02/01/20 16:00 - ADDITIONAL ORDERS Additional order review: Laboratory Results 02/01/20 02/01/20 16:00 16:00 D-Dimer 666 H Sodium 139 Potassium 4.0 Chloride 103 Carbon Dioxide 28 Anion Gap 8 BUN 11.4 Creatinine 0.7 Est GFR (CKD-EPI)AfAm 106.12 Est GFR (CKD-EPI)NonAf 91.56 Random Glucose 87 Calcium 9.4 Total Bilirubin 0.4 AST 18 ALT 19 Alkaline Phosphatase 101 Creatine Kinase 114 Troponin I < 0.02 Total Protein 8.0 Albumin 3.7 02/01/20 16:00 RBC 4.86 MCV 79.5 L MCHC 32.0 RDW 16.6 H MPV 6.8 L Neutrophils % 49.5 Lymphocytes % 38.3 Monocytes % 5.8 Eosinophils % 5.4 H D Basophils % 1.0 D Medical Decision Making - Medical Decision Making Pt was signed out to me by resident Dr. Pierre, who explained the presentation, ED course, any pending results, and needed interventions. Pending results include second troponin. Pt is currently stable and is lying comfortably. Vitals stable. 02/01/20 19:13 Second troponin negative Pt knows to be self-quarantined, pending results of covid testing. Strict return precautions provided with pt understanding. 02/01/20 19:59 Discharge - Discharge Information Problems reviewed: Yes Clinical Impression/Diagnosis: Chest pain Qualifiers: Chest pain type: unspecified Qualified Code(s): R07.9 - Chest pain, unspecified Condition: Good Disposition: HOME - Admission No - Follow up/Referral Referrals: Judy Martin MD [Primary Care Provider] - Anderson Skinner MD [Staff Physician] - - Patient Discharge Instructions Patient Printed Discharge Instructions: DI for Atypical Chest Pain, DI for Chest Pain Additional Instructions: Your EKG, labs, chest x-ray were within normal limits. Because you have been in contact with someone with known COVID-19, we encourage you to self quarantine for 14 days since the contact for the safety of yourself and those around you. Please make a follow up appointment with a turbo electric operator (referral provided here). If you experience any new, worsening, or concerning symptoms, including severe chest pain, nausea, vomiting, shortness of breath, cough, fever, or any other concerns, please return to the emergency room. - Post Discharge Activity
[2020-02-01 19:19] VITALS: BP 122/78; PULSE 68; TEMP 98.3
== END 2020-02-01 20:29 | disposition home or self-care (01) ==
LOC: JER 14:32
DX: Z20.828 Contact with and (suspected) exposure to other viral communicable diseases (principal); R07.9 Chest pain, unspecified
CPT/HCPCS: 36415; 71045-TC-FY; 80053; 82550; 84484; 85025; 85379; 87798; 87804; 87807; 93005; 93010; 99285-25; U0002

== ENCOUNTER 2020-10-07 05:47 | Day surgery (SDC) | payer OTHER ==
[2020-10-06 13:12] VITALS: BMI 37.5
[2020-10-07] MEDS ORDERED: PROPOFOL 20 ML ONE (12:49)
[2020-10-07] MEDS ORDERED: MIDAZOLAM HCL 2 MG/2 ML SINGLE DOSE VIAL ONE (12:50)
[2020-10-07] MEDS ORDERED: ceFAZolin SODIUM 1 GM VIAL IVPB ONE (13:04)
[2020-10-07] MEDS ORDERED: ceFAZolin SODIUM 1 GM VIAL ONE (13:04)
[2020-10-07] MEDS ORDERED: DEXAMETHASONE SOD PHOSPHATE 4 MG/1 ML VIAL ONE (13:05)
[2020-10-07] MEDS ORDERED: IOHEXOL 300 MG/ML INFUS..BTL IV ONE (13:06)
[2020-10-07] MEDS ORDERED: KETOROLAC TROMETHAMINE 30 MG/1 ML VIAL ONE (13:06)
[2020-10-07] MEDS ORDERED: oxyCODONE HCL 5 MG TABLET PO PRN (13:47)
[2020-10-07] MEDS ORDERED: ONDANSETRON 4 MG/2 ML VIAL IVPUSH PRN (13:47)
[2020-10-07] MEDS ORDERED: PROMETHAZINE HCL 25 MG/1 ML VIAL IVPB PRN (13:47)
[2020-10-07] MEDS ORDERED: LACTATED RINGERS SOLUTION 1,000 ML IV SCH (14:00)
[2020-10-07 15:16] VITALS: BP 143/84; PULSE 54; TEMP 97
== END 2020-10-07 17:15 | disposition home or self-care (01) ==
LOC: JASU-SURG 05:47
PROVIDERS: ATTEND Urology
PROC: 0T9680Z Drainage of Right Ureter with Drainage Device, Via Natural or Artificial Opening Endoscopic (ICD-10-PCS; principal; 2020-10-07 15:30)
DX: N23 Unspecified renal colic (principal); R31.9 Hematuria, unspecified
CPT/HCPCS: 76000-TC-FY; 94760

== ENCOUNTER 2021-06-17 09:26 | Emergency (ER) | payer OTHER ==
[2021-06-17 09:47] VITALS: BP 116/73; PULSE 70; TEMP 97.1; BMI 37.1
[2021-06-17] MEDS ORDERED: KETOROLAC TROMETHAMINE 60 MG/2 ML VIAL IM ONE (11:04)
[2021-06-17] MEDS ORDERED: KETOROLAC TROMETHAMINE 30 MG/1 ML VIAL ONE (11:09)
== END 2021-06-17 11:54 | disposition home or self-care (01) ==
LOC: JER 09:26
PROC: 3E0233Z Introduction of Anti-inflammatory into Muscle, Percutaneous Approach (ICD-10-PCS; principal; 2021-06-17)
DX: M24.851 Other specific joint derangements of right hip, not elsewhere classified (principal)
CPT/HCPCS: 73523-TC-FY; 99284-25

== ENCOUNTER 2021-08-05 11:13 | Emergency (ER) | payer OTHER ==
[2021-08-05 11:30] VITALS: BP 125/71; PULSE 70; TEMP 98.1; BMI 36.9
== END 2021-08-05 12:35 | disposition home or self-care (01) ==
LOC: JERFT 11:13
PROC: 0X950ZX Drainage of Left Axilla, Open Approach, Diagnostic (ICD-10-PCS; principal; 2021-08-05)
DX: L02.412 Cutaneous abscess of left axilla (principal)
CPT/HCPCS: 10060; 99284-25

== ENCOUNTER 2021-08-07 10:06 | Emergency (ER) | payer OTHER ==
[2021-08-07 10:11] VITALS: BP 126/77; PULSE 66; TEMP 98; BMI 36.9
== END 2021-08-07 11:36 | disposition home or self-care (01) ==
LOC: JERFT 10:06 → JER 10:06 → JERFT 11:36
DX: Z48.00 Encounter for change or removal of nonsurgical wound dressing (principal)
CPT/HCPCS: 99281-25